=== PATIENT | male | born 1995 | race Caucasian/White ===

== ENCOUNTER 2017-04-18 10:56 | Emergency (ER) | payer BC ==
[2017-04-18 13:49] VITALS: BP 152/73
--- NOTE | 2017-04-18 13:50 | UC ---
Laceration HPI - HPI Summary HPI Summary: Pt presents to with laceration to left wrist which occurred at 1030pm last evening. Pt states was using a serrated knife to cut an onion when it slipped and he cut himself. Pt states rinsed under water and controlled bleeding. Pt denies paresthesia, had weakness. Not on anticoagulation. Pt s RHD . Not immuocompromised. Unknown last Tdap. 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 Laceration Location: Wrist Mechanism Of Injury: Sharp Trauma Onset/Duration: Sudden Onset, Lasting Hours Severity: Mild Aggravating Factors: Movement - Allergies/Home Medications Allergies/Adverse Reactions: Allergies Allergy/AdvReac Type Severity Reaction Status Date / Time No Known Allergies Allergy Verified 04/18/17 13:48 PMH/Surg Hx/FS Hx/Imm Hx Previously Healthy: Yes - Surgical History Surgical History: None - Family History Known Family History: Positive: None, Respiratory Disease - asthma - Social History Occupation: Student Lives: With Family Alcohol Use: Rare Substance Use Type: None Smoking Status (MU): Heavy Every Day Tobacco Smoker Amount Used/How Often: 10 cig a day Length of Time of Smoking/Using Tobacco: age 18 Review of Systems Constitutional: Negative Skin: Other - laceration Is Patient Immunocompromised?: No All Other Systems Reviewed And Are Negative: Yes Physical Exam Triage Information Reviewed: Yes Appearance: Well-Appearing, No Pain Distress, Well-Nourished Vital Signs: Initial Vital Signs Temp 98.5 F 04/18/17 13:45 Pulse 88 04/18/17 13:45 Resp 14 04/18/17 13:45 BP 152/73 04/18/17 13:45 Vital Signs Reviewed: Yes Eye Exam: Normal Eyes: Positive: Conjunctiva Clear ENT: Positive: Hearing grossly normal Neck: Positive: Supple Respiratory: Positive: No respiratory distress, No accessory muscle use Cardiovascular: Positive: Other: - 2+ radial, 2+ ulnar CBT < 2 sec all digits no active bleeding Musculoskeletal Exam: Normal - + flex/ext elbow, wrist + flex/ext mcp, ip joints against resistance Neurological: Positive: Other: - + thumb up, a ok, finger spread, finger cross + gross sensation throughout hand, fingers 5/5 grasp Psychological Exam: Normal Skin: Positive: Other - Pt with 2 cm laceration prox/distal jagged edges along volar aspect of wrist. No extension to palmar surface Laceration Repair - Laceration Repair 1 Description: Linear - Pt verbal consent time out performed with RN in room Wound prepped and draped in usual sterile fashion Wound examined through full ROM in bloodless field - no injury beyond subcutaneous tissue visible Place 4 simple interrupted sutures with loose closure but good alignment wound covered with abx ointment and bandage Pt placed in cockup splint by RN Pt tolerated well Laceration Size After Repair: Length (cm) - 2 Modified For Repair: No Type Injection: Local Anesthesia Used: 2.0% Lido - 2.5ml Cleansing Completed Via Routine Prep: Yes Irrigation With Pressure Irrigation Device: Yes Closure Material: Sutures Closure Method: Single Layer Suture Of: Skin Suture Type: Nylon - 4-0 Laceration Course/Dx - Course/Dx Course Of Treatment: Pt with laceration to left volar wrist - pt denies self inflicted SI/HI. d/w pt and friend regarding loose closure related to delayed nature of treatment - state understanding. Pt tolerated suture. tdap updated. motrin/apap. keflex. pt placed in [facility] cockup by RN. return precautions discussed. pt states agreement and understanding plan. return precautions discussed including s/s infection - Differential Dx - Laceration/Wound Provider Diagnoses: wrist laceration, left with repair Discharge - Discharge Plan Condition: Stable Disposition: HOME Prescriptions: Cephalexin CAP* [Keflex 500 CAP*] 500 mg PO TID #21 cap Patient Education Materials: Diphtheria/Acellular Pertussis/Tetanus Booster Vaccine (By injection), Laceration (ED) Referrals: No Primary Care Phys,NOPCP [Primary Care Provider] - Additional Instructions: - your stitches should come out in 10 days - you can return here, go to your Doctor or any urgent care center - okay to alternate ibuprofin (advil, motrin) and tylenol every 3hours as needed for pain -Keep your wound clean and dry - no soaking for 24 hours. Then, okay for wound to get wet - pat dry, don't rub -apply a thin layer of antibiotic ointment (neosporin, polysporin) 2-3 times a day - keep your wound clean - monitor for signs of infection - reddness, red streaking, odor, green drainage - Take antibiotics as prescribed utnil gone - wear wrist splint as much as possible for support. -you received a tetanus vaccine today - you arm may be sore tomorrow- this is normal. - Contact your doctor or return here with questions or concerns
[2017-04-18] MEDS ORDERED: Lidocaine 2% PF * 5 ML VIAL INJ ONE (13:56)
[2017-04-18] MEDS ORDERED: Tetan/Diph/Pertus SYR(Tdap)* 0.5 ML SYR(BOOSTRIX) use SYR IM ONE (14:00)
== END 2017-04-18 14:50 | disposition home or self-care (01) ==
LOC: UCCORT 10:56
DX: S61.512A Laceration without foreign body of left wrist, initial encounter (principal); W26.0XXA Contact with knife, initial encounter; Y93.G3 Activity, cooking and baking; Y92.9 Unspecified place or not applicable; Y99.9 Unspecified external cause status; Z23 Encounter for immunization; Z72.0 Tobacco use
CPT/HCPCS: 12001; 12002; 90471; 90715; 99213; G0463

== ENCOUNTER 2019-07-14 13:12 | Emergency (ER) | payer BC, OTHER ==
[2019-07-14 14:43] VITALS: BP 136/66
--- NOTE | 2019-07-14 14:54 | UC ---
Abdominal Pain Male HPI - HPI Summary HPI Summary: 23 yo male with n/v/d x 2 days no fever mild FONSECA no UTI symptoms 3 episodes of vomiting/d 5+ episodes of diarrhea/d no f/c no URI no travel no COVID exposure - History of Current Complaint Chief Complaint: UCGI Stated Complaint: COUGH,DIARRHEA Time Seen by Provider: 07/14/19 14:32 Hx Obtained From: Patient Onset/Duration: Gradual Onset, Lasting Days Timing: Constant Severity Initially: Mild Severity Currently: Mild Pain Intensity: 0 Pain Scale Used: 0-10 Numeric Location: Diffuse - diffuse grampy abd pain prior to diarrhea, Other Radiates: No Character: Cramping Aggravating Factor(s): Food Alleviating Factor(s): Rest Associated Signs And Symptoms: Positive: Negative - Allergies/Home Medications Allergies/Adverse Reactions: Allergies Allergy/AdvReac Type Severity Reaction Status Date / Time No Known Allergies Allergy Verified 07/14/19 13:41 Home Medications: Home Medications Bismuth Subsalicylate [Pepto Bismol] 1 dose PO ONCE 07/14/19 [History Confirmed 07/14/19] PMH/Surg Hx/FS Hx/Imm Hx Previously Healthy: Yes - Surgical History Surgical History: None - Family History Known Family History: Positive: Hypertension, Respiratory Disease - asthma - Social History Alcohol Use: None Substance Use Type: None Smoking Status (MU): Heavy Every Day Tobacco Smoker Amount Used/How Often: 1/2 PPD Length of Time of Smoking/Using Tobacco: age 18 Review of Systems All Other Systems Reviewed And Are Negative: Yes Constitutional: Positive: Negative Skin: Positive: Negative Eyes: Positive: Negative ENT: Positive: Negative Respiratory: Positive: Negative Cardiovascular: Positive: Negative Gastrointestinal: Positive: Vomiting, Diarrhea, Nausea Genitourinary: Positive: Negative Motor: Positive: Negative Neurovascular: Positive: Negative Musculoskeletal: Positive: Negative Neurological/Mental Status: Positive: Negative Psychological: Positive: Negative Physical Exam Triage Information Reviewed: Yes Appearance: Well-Appearing, No Pain Distress, Well-Nourished Vital Signs: Initial Vital Signs Temp 98.2 F 07/14/19 13:38 Pulse 81 07/14/19 13:38 Resp 18 07/14/19 13:38 BP 136/66 07/14/19 13:38 Pulse Ox 99 07/14/19 13:38 Vital Signs Reviewed: Yes Eyes: Positive: Conjunctiva Clear ENT: Positive: Hearing grossly normal, Uvula midline. Negative: Nasal congestion, Nasal drainage, Tonsillar exudate, Trismus, Muffled voice, Hoarse voice Neck exam: Normal Neck: Positive: Nontender, No Lymphadenopathy Respiratory: Positive: Lungs clear, Normal breath sounds, No respiratory distress, No accessory muscle use Cardiovascular: Positive: RRR, No Murmur Abdominal Exam: Normal Bowel Sounds: Positive: Present Musculoskeletal: Positive: ROM Intact, No Edema Neurological: Positive: Alert Psychological Exam: Normal Skin Exam: Normal Abd Pain Male Course/Dx - Differential Dx/Clinical Impression Provider Diagnosis: Acute gastroenteritis Discharge ED - Sign-Out/Discharge Documenting (check all that apply): Patient Departure All imaging exams completed and their final reports reviewed: No Studies - Discharge Plan Condition: Stable Disposition: HOME Patient Education Materials: Gastroenteritis (ED), Nutrition Tips for Relief of Diarrhea (ED) Forms: *Work Release Referrals: No Primary Care Phys,NOPCP [Primary Care Provider] - Additional Instructions: you may use Imodium AD (OTC) please call me here Friday after 2:30 if not better [phone] If you develop constant abdominal pain or fever you need to be rechecked - Billing Disposition and Condition Condition: STABLE Disposition: Home
== END 2019-07-14 15:04 | disposition home or self-care (01) ==
LOC: UCCORT 13:12
DX: K52.9 Noninfective gastroenteritis and colitis, unspecified (principal); R51 Headache; F17.200 Nicotine dependence, unspecified, uncomplicated
CPT/HCPCS: 99211; G0463